=== PATIENT | male | born 1935 | race Caucasian/White ===

== ENCOUNTER 2018-04-06 12:25 | Inpatient (IN) | payer MEDICARE, OTHER ==
[~2018-04-06] VITALS: Ht 185.4 cm; Wt 89.4 kg
--- NOTE | ~2018-04-06 | MORECARE ---
CASE MANAGEMENT DISCHARGE SUMMARY PATIENT: JEAN-PIERRE RODRIGUEZ UNIT: [id number] ADM DATE: 04/07/18 AGE: 83 : 34 SEX: M ROOM/BED: D.2236 AUTHOR: SEJAL,DOC PHYSICIAN: REFERRING PHYSICIAN: CARMINA FARAH MD DATE OF SERVICE: 04/12/18 Discharge Plan Patient Name: JEAN-PIERRE RODRIGUEZ Facility: [facility]:[place] : 1935 Planned Disposition: Care Home Facility Anticipated Discharge Date: Discharge Date: 04/12/2018 Expected LOS: 0 Initial Reviewer: [email or web address] Initial Review Date: 04/06/2018 Generated: 04/12/18 4:04 pm Comments DCP- Discharge Planning Updated by [email or web address]: Paula Jb on 04/12/18 8:[address] Received discharge orders. Called [facility] and left a message with Joya. Discharge summary/orders faxed to [facility]. He will be discharging to a skilled (Medicare) bed today, when accepted. [facility] will transport. CM to continue to follow and assist with discharge planning/needs. DCP- Discharge Planning Updated by [email or web address]: aPula Muhammad on 04/11/18 1:[address] Spoke with patient, and his son about discharge plan. They are all in agreement to go to [facility] for skilled therapy and would like on "Akira's side". I called and spoke to Joya and informed her and clinical faxed. CM will continue to follow and assist with discharge planning/needs. DCP- Discharge Planning Updated by [email or web address]: Shu Block on 04/08/18 3:[address] SPOKE WITH PATIENT'S AND SON AT LENGTH ABOUT HOSPICE VS SKILLED. THEY QUESTIONED TEST THAT DR SILVA HAD TALKED ABOUT. I SPOKE WITH DR SILVA AND EXPRESSED THE FAMILIES CONCERNS AND QUESTIONS. DR SILVA STATED THAT HE WOULD ROUND TOMORROW AND ORDER THE TEST AND THEN WE WOULD REEVALUATE ON WEDNESDAY MORNING ABOUT THE NEXT STEP AND SEE WHAT THE FAMILY WILL WANT AND HOW THE PATIENT'S DOES. CM WILL CONTINUE TO FOLLOW AND ASSIST WITH DC PLANNING DCP- Discharge Planning Updated by [email or web address]: Kathy Hassan on 04/07/18 10:[address] Patient Name: JEAN-PIERRE RODRIGUEZ Admission Status: ER Accout number: [id number] Admission Date: 04-07-2018 : 1935 Admission Diagnosis: Attending: CARMINA FARAH Current LOS: 1 Anticipated DC Date: Planned Disposition: Primary Insurance: MEDICARE A & B Discharge Planning Comments: CM MET WITH PATIENT AND HIS ABOUT DC PLANNING/NEEDS. STATES PLAN IS TO GO TO IN PATIENT REHAB. WAITING ON SEVERAL DIFFERENT CONSULTS NOW. CM WILL FOLLOW AND ASSIST NEEDED WITH DC PLANNING/NEEDS. Jacquard Plate Maker: Kathy Hassan DCP- Discharge Planning Updated by [email or web address]: Pratima Munson on 04/06/18 2:[address] Call from Nellie Wray RN with [facility]. States there will not be a male bed available until tomorrow. Lacie Munson RN CM DCPIA - Discharge Planning Initial Assessment Updated by [email or web address]: Kathy Hassan on 04/07/18 11:06 am * Is the patient Alert and Oriented? Yes * How many steps to enter\\exit or inside your home? * PCP SOFI * Pharmacy [facility] * Preadmission Environment Home with Family * ADLs Partial Dependent * Partial ADLs (Assistance needed) Ambulation Bathing Dressing * Equipment Elevated Toliet Seat Glucometer Grab Bars Shower Chair Tub Bench Walker Wheelchair Wound Supplies * Other Equipment LIFT CHAIR RECLINER * List name and contact numbers for known caregivers / representatives who currently or will assist patient after discharge: ZE BURRIS, , * Community resources currently utilized None * Additional services required to return to the preadmission environment? Yes * Has this patient been hospitalized within the prior 30 days at any hospital? No Coverage Notice Reviewer: [email or web address] Cristina Muhammad Notice Issued Date-Time: 04/12/2018 10:02 Notice Type: IM Discharge Notice Notice Delivered To: Patient Relationship to Patient: Self Manager Compensation Name: Delivery Method: HAND - Hand Delivered Melanie Days: Prior Verbal Notification: Recipient Understood Notice: Yes Recipient Signature: Yes Med Rec Note Co-signed by Attending: Coverage Notice Comment: IMM explained, signed by his per his request, copy given and original placed in MR Last DP export: 04/12/18 8:45 Patient Name: JEAN-PIERRE RODRIGUEZ Page [id number] at 1505 All edits/amendments must be made on the electronic document DICTATION DATE: 04/12/181503 CONTRACT ADMIN: SIMEON 04/12/181503 RPT#: [id number] DC DATE:04/12/18 STATUS: DIS IN [facility] [address] [place] [address] END OF REPORT
--- NOTE | ~2018-04-06 | MORECARE ---
CASE MANAGEMENT DISCHARGE SUMMARY PATIENT: JEAN-PIERRE RODRIGUEZ UNIT: [id number] ADM DATE: 04/07/18 AGE: 83 : 34 SEX: M ROOM/BED: D.2236 AUTHOR: MELINDA POST PHYSICIAN: REFERRING PHYSICIAN: CARMINA FARAH MD DATE OF SERVICE: 04/11/18 Discharge Plan Patient Name: JEAN-PIERRE RODRIGUEZ Facility: [facility]:[place] : 1935 Planned Disposition: Anticipated Discharge Date: Discharge Date: Expected LOS: Initial Reviewer: [email or web address] Initial Review Date: 04/06/2018 Generated: 04/11/18 3:58 pm Comments DCP- Discharge Planning Updated by [email or web address]: Paula Muhammad on 04/11/18 1:[address] Spoke with patient, and his son about discharge plan. They are all in agreement to go to [facility] for skilled therapy and would like on "Akira's side". I called and spoke to Joya and informed her and clinical faxed. CM will continue to follow and assist with discharge planning/needs. DCP- Discharge Planning Updated by [email or web address]: Shu Block on 04/08/18 3:[address] SPOKE WITH PATIENT'S AND SON AT LENGTH ABOUT HOSPICE VS SKILLED. THEY QUESTIONED TEST THAT DR SILVA HAD TALKED ABOUT. I SPOKE WITH DR SILVA AND EXPRESSED THE FAMILIES CONCERNS AND QUESTIONS. DR SILVA STATED THAT HE WOULD ROUND TOMORROW AND ORDER THE TEST AND THEN WE WOULD REEVALUATE ON WEDNESDAY MORNING ABOUT THE NEXT STEP AND SEE WHAT THE FAMILY WILL WANT AND HOW THE PATIENT'S DOES. CM WILL CONTINUE TO FOLLOW AND ASSIST WITH DC PLANNING DCP- Discharge Planning Updated by [email or web address]: Kathy Hassan on 04/07/18 10:[address] Patient Name: JEAN-PIERRE RODRIGUEZ Admission Status: ER Accout number: [id number] Admission Date: 04-07-2018 : 1935 Admission Diagnosis: Attending: CARMINA FARAH Current LOS: 1 Anticipated DC Date: Planned Disposition: Primary Insurance: MEDICARE A & B Discharge Planning Comments: CM MET WITH PATIENT AND HIS ABOUT DC PLANNING/NEEDS. STATES PLAN IS TO GO TO IN PATIENT REHAB. WAITING ON SEVERAL DIFFERENT CONSULTS NOW. CM WILL FOLLOW AND ASSIST NEEDED WITH DC PLANNING/NEEDS. Certified Wellness Program Manager: Kathy Sonya DCP- Discharge Planning Updated by [email or web address]: Pratima Munson on 04/06/18 2:[address] Call from Nellie Wray RN with [facility]. States there will not be a male bed available until tomorrow. Lacie Munson RN CM DCPIA - Discharge Planning Initial Assessment Updated by [email or web address]: Kathy Hassan on 04/07/18 11:06 am * Is the patient Alert and Oriented? Yes * How many steps to enter\\exit or inside your home? * PCP SOFI * Pharmacy [facility] * Preadmission Environment Home with Family * ADLs Partial Dependent * Partial ADLs (Assistance needed) Ambulation Bathing Dressing * Equipment Elevated Tol[place] Seat Glucometer Grab Bars Shower Chair Tub Bench Walker Wheelchair Wound Supplies * Other Equipment LIFT CHAIR RECLINER * List name and contact numbers for known caregivers / representatives who currently or will assist patient after discharge: FATUMA, , , * Community resources currently utilized None * Additional services required to return to the preadmission environment? Yes * Has this patient been hospitalized within the prior 30 days at any hospital? No Last DP export: 04/11/18 1:49 Patient Name: JEAN-PIERRE RODRIGUEZ Page [phone] at 1458 All edits/amendments must be made on the electronic document DICTATION DATE: 04/11/181456 SQUARE CUTTER: SIMEON 04/11/181456 RPT#: [id number] DC DATE: STATUS: ADM IN [facility] [address] [place] [address] END OF REPORT
--- NOTE | ~2018-04-06 | MORECARE ---
CASE MANAGEMENT DISCHARGE SUMMARY PATIENT: JEAN-PIERRE RODRIGUEZ UNIT: [id number] ADM DATE: 04/07/18 AGE: 83 : 34 SEX: M ROOM/BED: D.2236 AUTHOR: MELINDA POST PHYSICIAN: REFERRING PHYSICIAN: CARMINA FARAH MD DATE OF SERVICE: 04/07/18 Discharge Plan Patient Name: JEAN-PIERRE RODRIGUEZ [facility] [facility] 1935 Planned Disposition: Anticipated Discharge Date: Discharge Date: Expected LOS: Initial Reviewer: [email or web address] Initial Review Date: 04/06/2018 Generated: 04/07/18 11:56 am DCP- Discharge Planning Updated by [email or web address]: Pratima Munson on 04/06/18 2:[address] Call from Nellie Wray RN with [facility]. States there will not be a male bed available until tomorrow. Lacie Munson RN CM Last DP export: 04/06/18 2:57 Patient Name: JEAN-PIERRE RODRIGUEZ Page [phone] at 1056 All edits/amendments must be made on the electronic document DICTATION DATE: 04/07/18 1056 SLACKMAN: SIMEON 04/07/18 1056 RPT#: [id number] DC DATE: STATUS: ADM IN [facility] [address] [place] [address] END OF REPORT
--- NOTE | ~2018-04-06 | MORECARE ---
CASE MANAGEMENT DISCHARGE SUMMARY PATIENT: JEAN-PIERRE RODRIGUEZ UNIT: [id number] ADM DATE: 04/07/18 AGE: 83 : 34 SEX: M ROOM/BED: D.2236 AUTHOR: MELINDA POST PHYSICIAN: REFERRING PHYSICIAN: CARMINA FARAH MD DATE OF SERVICE: 04/07/18 Discharge Plan Patient Name: JEAN-PIERRE RODRIGUEZ Facility: [facility]:[place] : 1935 Planned Disposition: Anticipated Discharge Date: Discharge Date: Expected LOS: Initial Reviewer: [email or web address] Initial Review Date: 04/06/2018 Generated: 04/07/18 12:10 pm DCP- Discharge Planning Updated by [email or web address]: Pratima Munson on 04/06/18 2:[address] Call from Nellie Wray RN with [facility]. States there will not be a male bed available until tomorrow. Lacie Munson RN DCPIA - Discharge Planning Initial Assessment Updated by [email or web address]: Kathy Hassan on 04/07/18 11:06 am * Is the patient Alert and Oriented? Yes * How many steps to enter\exit or inside your home? * PCP SOFI * Pharmacy [facility] * Preadmission Environment Home with Family * ADLs Partial Dependent * Partial ADLs (Assistance needed) Ambulation Bathing Dressing * Equipment Elevated Tol[place] Seat Glucometer Grab Bars Shower Chair Tub Bench Walker Wheelchair Wound Supplies * Other Equipment LIFT CHAIR RECLINER * List name and contact numbers for known caregivers / representatives who currently or will assist patient after discharge: ZE BURRIS, , * Community resources currently utilized None * Additional services required to return to the preadmission environment? Yes * Has this patient been hospitalized within the prior 30 days at any hospital? No Last DP export: 04/07/18 9:56 Patient Name: JEAN-PIERRE RODRIGUEZ Page [phone] at 1110 All edits/amendments must be made on the electronic document DICTATION DATE: 04/07/18 1110 WATER QUALITY ANALYST: SIMEON 04/07/18 1110 RPT#: [id number] DC DATE: STATUS: ADM IN [facility] [address] [place] [address] END OF REPORT
--- NOTE | ~2018-04-06 | MORECARE ---
CASE MANAGEMENT DISCHARGE SUMMARY PATIENT: JEAN-PIERRE RODRIGUEZ UNIT: [id number] ADM DATE: 04/07/18 AGE: 83 : 34 SEX: M ROOM/BED: D.2236 AUTHOR: MELINDA POST PHYSICIAN: REFERRING PHYSICIAN: CARMINA FARAH MD DATE OF SERVICE: 04/08/18 Discharge Plan Patient Name: JEAN-PIERRE RODRIGUEZ Facility: [facility]:[place] : 1935 Planned Disposition: Anticipated Discharge Date: Discharge Date: Expected LOS: Initial Reviewer: [id number] Initial Review Date: 04/06/2018 Generated: 04/08/18 5:08 pm Comments DCP- Discharge Planning Updated by [email or web address]: Shu Block on 04/08/18 3:[address] SPOKE WITH PATIENT'S AND SON AT LENGTH ABOUT HOSPICE VS SKILLED. THEY QUESTIONED TEST THAT DR SILVA HAD TALKED ABOUT. I SPOKE WITH DR SILVA AND EXPRESSED THE FAMILIES CONCERNS AND QUESTIONS. DR SILVA STATED THAT HE WOULD ROUND TOMORROW AND ORDER THE TEST AND THEN WE WOULD REEVALUATE ON WEDNESDAY MORNING ABOUT THE NEXT STEP AND SEE WHAT THE FAMILY WILL WANT AND HOW THE PATIENT'S DOES. CM WILL CONTINUE TO FOLLOW AND ASSIST WITH DC PLANNING DCP- Discharge Planning Updated by [email or web address]: Kathy Hassan on 04/07/18 10:[address] Patient Name: JEAN-PIERRE RODRIGUEZ Admission Status: ER Accout number: [id number] Admission Date: 04-07-2018 : 1935 Admission Diagnosis: Attending: CARMINA FARAH Current LOS: 1 Anticipated DC Date: Planned Disposition: Primary Insurance: MEDICARE A & B Discharge Planning Comments: CM MET WITH PATIENT AND HIS ABOUT DC PLANNING/NEEDS. STATES PLAN IS TO GO TO IN PATIENT REHAB. WAITING ON SEVERAL DIFFERENT CONSULTS NOW. CM WILL FOLLOW AND ASSIST NEEDED WITH DC PLANNING/NEEDS. Cloth Trimmer Hand: Kathy Hassan DCP- Discharge Planning Updated by [email or web address]: Pratima Munson on 04/06/18 2:[address] Call from Nellie Wray RN with [facility]. States there will not be a male bed available until tomorrow. Lacie Munson RN CM DCPIA - Discharge Planning Initial Assessment Updated by [email or web address]: Kathy Hassan on 04/07/18 11:06 am * Is the patient Alert and Oriented? Yes * How many steps to enter\exit or inside your home? * PCP SOFI * Pharmacy [facility] * Preadmission Environment Home with Family * ADLs Partial Dependent * Partial ADLs (Assistance needed) Ambulation Bathing Dressing * Equipment Elevated Toliet Seat Glucometer Grab Bars Shower Chair Tub Bench Walker Wheelchair Wound Supplies * Other Equipment LIFT CHAIR RECLINER * List name and contact numbers for known caregivers / representatives who currently or will assist patient after discharge: FATUMA, , , * Community resources currently utilized None * Additional services required to return to the preadmission environment? Yes * Has this patient been hospitalized within the prior 30 days at any hospital? No Last DP export: 04/07/18 10:23 Patient Name: JEAN-PIERRE RODRIGUEZ Page [phone] at 1609 All edits/amendments must be made on the electronic document DICTATION DATE: 04/08/181607 CONCRETE FOREMAN: SIMEON 04/08/181607 RPT#: [id number] [place] DATE: STATUS: ADM IN [facility] [address] [place] [address] END OF REPORT
--- NOTE | ~2018-04-06 | MORECARE ---
CASE MANAGEMENT DISCHARGE SUMMARY PATIENT: JEAN-PIERRE RODRIGUEZ UNIT: [id number] ADM DATE: 04/06/18 AGE: 83 : 34 SEX: M ROOM/BED: D.2236 AUTHOR: MELINDA POST PHYSICIAN: REFERRING PHYSICIAN: CARMINA FARAH MD DATE OF SERVICE: 04/06/18 Discharge Plan Patient Name: JEAN-PIERRE RODRIGUEZ [facility] : 1935 Planned Disposition: Anticipated Discharge Date: Discharge Date: Expected LOS: Initial Reviewer: [id number] Initial Review Date: 04/06/2018 Generated: 04/06/18 4:57 pm DCP- Discharge Planning Updated by [email or web address]: Pratima Munson on 04/06/18 2:[address] Call from Nellie Wray RN with [facility]. States there will not be a male bed available until tomorrow. Lacie Munson RN CM Patient Name: JEAN-PIERRE RODRIGUEZ Page [phone] at 1557 All edits/amendments must be made on the electronic document DICTATION DATE: 04/06/181556 SENIOR SCIENCE CONSULTANT: SIMEON 04/06/181556 RPT#: [id number] DC DATE: STATUS: ADM IN [facility] [address] [place] [address] END OF REPORT
--- NOTE | ~2018-04-06 | MORECARE ---
CASE MANAGEMENT DISCHARGE SUMMARY PATIENT: JEAN-PIERRE RODRIGUEZ UNIT: [id number] ADM DATE: 04/07/18 AGE: 83 : 34 SEX: M ROOM/BED: D.2236 AUTHOR: MELINDA POST PHYSICIAN: REFERRING PHYSICIAN: CARMINA FARAH MD DATE OF SERVICE: 04/07/18 Discharge Plan Patient Name: JEAN-PIERRE RODRIGUEZ Facility: [facility]:[place] : 1935 Planned Disposition: Anticipated Discharge Date: Discharge Date: Expected LOS: Initial Reviewer: [email or web address] Initial Review Date: 04/06/2018 Generated: 04/07/18 12:23 pm Comments DCP- Discharge Planning Updated by [email or web address]: Kathy Hassan on 04/07/18 10:[address] Patient Name: JEAN-PIERRE RODRIGUEZ Admission Status: ER Accout number: [id number] Admission Date: 04-07-2018 : 1935 Admission Diagnosis: Attending: CARMINA FARAH Current LOS: 1 Anticipated DC Date: Planned Disposition: Primary Insurance: MEDICARE A & B Discharge Planning Comments: CM MET WITH PATIENT AND HIS ABOUT DC PLANNING/NEEDS. STATES PLAN IS TO GO TO [facility] PATIENT REHAB. WAITING ON SEVERAL DIFFERENT CONSULTS NOW. CM WILL FOLLOW AND ASSIST NEEDED WITH DC PLANNING/NEEDS. Handcrew Foreman: Kathy Hassan DCP- Discharge Planning Updated by [email or web address]: Pratima Munson on 04/06/18 2:[address] Call from Nellie Wray RN with [facility]. States there will not be a male bed available until tomorrow. Lacie Munson RN CM DCPIA - Discharge Planning Initial Assessment Updated by [email or web address]: Kathy Hassan on 04/07/18 11:06 am * Is the patient Alert and Oriented? Yes * How many steps to enter\exit or inside your home? * PCP SOFI * Pharmacy [facility] * Preadmission Environment Home with Family * ADLs Partial Dependent * Partial ADLs (Assistance needed) Ambulation Bathing Dressing * Equipment Elevated Toliet Seat Glucometer Grab Bars Shower Chair Tub Bench Walker Wheelchair Wound Supplies * Other Equipment LIFT CHAIR RECLINER * List name and contact numbers for known caregivers / representatives who currently or will assist patient after discharge: FATUMA, , , * Community resources currently utilized None * Additional services required to return to the preadmission environment? Yes * Has this patient been hospitalized within the prior 30 days at any hospital? No Last DP export: 04/07/18 10:10 Patient Name: JEAN-PIERRE RODRIGUEZ Page 09845 at 1123 All edits/amendments must be made on the electronic document DICTATION DATE: 04/07/18 112 KNIFE SETTER GRINDER MACHINE: SIMEON 04/07/181122 RPT#: [id number] DC DATE: STATUS: ADM IN [facility] [address] [place] [address] END OF REPORT
--- NOTE | ~2018-04-06 | MORECARE ---
CASE MANAGEMENT DISCHARGE SUMMARY PATIENT: JEAN-PIERRE RODRIGUEZ UNIT: [id number] ADM DATE: 04/07/18 AGE: 83 : 34 SEX: M ROOM/BED: D.2236 AUTHOR: MELINDA POST PHYSICIAN: REFERRING PHYSICIAN: CARMINA FARAH MD DATE OF SERVICE: 04/11/18 Discharge Plan Patient Name: JEAN-PIERRE RODRIGUEZ Facility: [facility]:[place] : 1935 Planned Disposition: Anticipated Discharge Date: Discharge Date: Expected LOS: Initial Reviewer: [email or web address] Initial Review Date: 04/06/2018 Generated: 04/11/18 3:49 pm Comments DCP- Discharge Planning Updated by [email or web address]: Paula Muhammad on 04/11/18 1:[address] Spoke with patient, and his son about discharge plan. They are all in agreement to go to [facility] for skilled therapy and would like on "Akira's side". I called and spoke to Joya and informed her and clinical faxed. CM will continue to follow and assist with discharge planning/needs. DCP- Discharge Planning Updated by [email or web address]: Shu Block on 04/08/18 3:[address] SPOKE WITH PATIENT'S AND SON AT LENGTH ABOUT HOSPICE VS SKILLED. THEY QUESTIONED TEST THAT DR SILVA HAD TALKED ABOUT. I SPOKE WITH DR SILVA AND EXPRESSED THE FAMILIES CONCERNS AND QUESTIONS. DR SILVA STATED THAT HE WOULD ROUND TOMORROW AND ORDER THE TEST AND THEN WE WOULD REEVALUATE ON WEDNESDAY MORNING ABOUT THE NEXT STEP AND SEE WHAT THE FAMILY WILL WANT AND HOW THE PATIENT'S DOES. CM WILL CONTINUE TO FOLLOW AND ASSIST WITH DC PLANNING DCP- Discharge Planning Updated by [id number]: Kathy Hassan on 04/07/18 10:[address] Patient Name: JEAN-PIERRE RODRIGUEZ Admission Status: ER Accout number: [id number] Admission Date: 04-07-2018 : 1935 Admission Diagnosis: Attending: CARMINA FARAH Current LOS: 1 Anticipated DC Date: Planned Disposition: Primary Insurance: MEDICARE A & B Discharge Planning Comments: CM MET WITH PATIENT AND HIS ABOUT DC PLANNING/NEEDS. STATES PLAN IS TO GO TO IN PATIENT REHAB. WAITING ON SEVERAL DIFFERENT CONSULTS NOW. CM WILL FOLLOW AND ASSIST NEEDED WITH DC PLANNING/NEEDS. Outreach Associate: Kathy Hassan DCP- Discharge Planning Updated by [email or web address]: Pratima Munson on 04/06/18 2:[address] Call from Nellie Wray RN with [facility]. States there will not be a male bed available until tomorrow. Lacie Munson RN CM DCPIA - Discharge Planning Initial Assessment Updated by [email or web address]: Kathykristie Hassan on 04/07/18 11:06 am * Is the patient Alert and Oriented? Yes * How many steps to enter\\exit or inside your home? * PCP SOFI * Pharmacy [facility] * Preadmission Environment Home with Family * ADLs Partial Dependent * Partial ADLs (Assistance needed) Ambulation Bathing Dressing * Equipment Elevated Toliet Seat Glucometer Grab Bars Shower Chair Tub Bench Walker Wheelchair Wound Supplies * Other Equipment LIFT CHAIR RECLINER * List name and contact numbers for known caregivers / representatives who currently or will assist patient after discharge: ZE BURRIS, , * Community resources currently utilized None * Additional services required to return to the preadmission environment? Yes * Has this patient been hospitalized within the prior 30 days at any hospital? No External Providers External Provider: [facility] Next Contact Date: Service Request Date: Service Type: Resolution: Reviewer: Comments: Last DP export: 04/08/18 3:09 Patient Name: JEAN-PIERRE RODRIGUEZ Page [phone] at 1449 All edits/amendments must be made on the electronic document DICTATION DATE: 04/11/18 144 EDGING MACHINE OPERATOR: SIMEON 04/11/18 144 RPT#: [id number] DC DATE: STATUS: ADM IN [facility] [address] [place] [address] END OF REPORT
--- NOTE | ~2018-04-06 | MORECARE ---
CASE MANAGEMENT DISCHARGE SUMMARY PATIENT: JEAN-PIERRE RODRIGUEZ UNIT: [id number] ADM DATE: 04/07/18 AGE: 83 : 34 SEX: M ROOM/BED: D.2236 AUTHOR: MELINDA POST PHYSICIAN: REFERRING PHYSICIAN: CARMINA FARAH MD DATE OF SERVICE: 04/12/18 Discharge Plan Patient Name: JEAN-PIERRE RODRIGUEZ Facility: [facility]:[place] : 1935 Planned Disposition: Anticipated Discharge Date: Discharge Date: Expected LOS: Initial Reviewer: [email or web address] Initial Review Date: 04/06/2018 Generated: 04/12/18 10:45 am Comments DCP- Discharge Planning Updated by [email or web address]: Paula Muhammad on 04/12/18 8:[address] Received discharge orders. Called [facility] and left a message with Joya. Discharge summary/orders faxed to [facility]. He will be discharging to a skilled (Medicare) bed today, when accepted. [facility] will transport. CM to continue to follow and assist with discharge planning/needs. DCP- Discharge Planning Updated by [id number]: Paula Muhammad on 04/11/18 1:[address] Spoke with patient, and his son about discharge plan. They are all in agreement to go to [facility] for skilled therapy and would like on "Akira's side". I called and spoke to Joya and informed her and clinical faxed. CM will continue to follow and assist with discharge planning/needs. DCP- Discharge Planning Updated by [email or web address]: Shu Block on 04/08/18 3:[address] SPOKE WITH PATIENT'S AND SON AT LENGTH ABOUT HOSPICE VS SKILLED. THEY QUESTIONED TEST THAT DR SILVA HAD TALKED ABOUT. I SPOKE WITH DR SILVA AND EXPRESSED THE FAMILIES CONCERNS AND QUESTIONS. DR SILVA STATED THAT HE WOULD ROUND TOMORROW AND ORDER THE TEST AND THEN WE WOULD REEVALUATE ON WEDNESDAY MORNING ABOUT THE NEXT STEP AND SEE WHAT THE FAMILY WILL WANT AND HOW THE PATIENT'S DOES. CM WILL CONTINUE TO FOLLOW AND ASSIST WITH DC PLANNING DCP- Discharge Planning Updated by [id number]: Kathy Hassan on 04/07/18 10:[address] Patient Name: JEAN-PIERRE RODRIGUEZ Admission Status: ER Accout number: [id number] Admission Date: 04-07-2018 : 1935 Admission Diagnosis: Attending: CARMINA FARAH Current LOS: 1 Anticipated DC Date: Planned Disposition: Primary Insurance: MEDICARE A & B Discharge Planning Comments: CM MET WITH PATIENT AND HIS ABOUT DC PLANNING/NEEDS. STATES PLAN IS TO GO TO IN PATIENT REHAB. WAITING ON SEVERAL DIFFERENT CONSULTS NOW. CM WILL FOLLOW AND ASSIST NEEDED WITH DC PLANNING/NEEDS. Coding Technician: Kathy Hassan DCP- Discharge Planning Updated by [email or web address]: Pratima Munson on 04/06/18 2:[address] Call from Nellie Wray RN with [facility]. States there will not be a male bed available until tomorrow. Lacie Munson RN CM DCPIA - Discharge Planning Initial Assessment Updated by [email or web address]: Kathy Hassan on 04/07/18 11:06 am * Is the patient Alert and Oriented? Yes * How many steps to enter\\exit or inside your home? * PCP SOFI * Pharmacy [facility] * Preadmission Environment Home with Family * ADLs Partial Dependent * Partial ADLs (Assistance needed) Ambulation Bathing Dressing * Equipment Elevated Tol[place] Seat Glucometer Grab Bars Shower Chair Tub Bench Walker Wheelchair Wound Supplies * Other Equipment LIFT CHAIR RECLINER * List name and contact numbers for known caregivers / representatives who currently or will assist patient after discharge: ZE BURRIS, , * Community resources currently utilized None * Additional services required to return to the preadmission environment? Yes * Has this patient been hospitalized within the prior 30 days at any hospital? No Last DP export: 04/11/18 1:58 Patient Name: JEAN-PIERRE RODRIGUEZ Page [phone] at 0945 All edits/amendments must be made on the electronic document DICTATION DATE: 04/12/18944 ORDER ENTRY TECHNICIAN: SIMEON 04/12/18944 RPT#: [id number] DC DATE: STATUS: ADM IN [facility] [address] [id number] END OF REPORT
[~2018-04-06 12:25] MED LIST: ASPIRIN325 MG PO; BAYER CHEWABLE81 MG PO; CALCIUM 600+D T1 TA1 PO; CARAFATE1 G PO; COREG 3.1253.125 MG PO; COUMADIN2.5 MG PO; COUMADIN5 MG PO; COZAAR25 MG PO; COZAAR50 MG PO; GAS-X80 MG PO; GLUCOTROL 5 MG T5 MG; GLUCOTROL XL 5 M5 MG PO; KLOR-CON M2020 MEQ PO; LASIX20 MG PO; LOVENOX40 MG/0.4 SC; METAMUCIL PACKE1 PKT PO; MEVACOR40 MG PO; MICRO-K 1010 MEQ PO; MICRO-K10 MEQ PO; MYLANTA / MAALO30 ML PO; MYSOLINE 50 MG50 MG PO; NORVASC2.5 MG PO; NORVASC5 MG; PERCOCET 10/3251 TA1 PO; PLAVIX75 MG PO; PROTONIX40 MG PO; SENNA PLUS TA1 UDTAB PO; SUTENT50 MG PO; ZOLOFT50 MG PO
[2018-04-06 14:16] LABS: HEMATOCRIT 23.4 % (42.0-54.0); HEMOGLOBIN 7.7 g/dL (13.5-17.5); LYMPHOCYTES 9.8 % (15-50); MCH 35.5 pg (26.0-34.0); MCHC 32.9 g/dL (31.0-37.0); MCV 107.8 fL (80.0-100.0); MEAN PLATELET VOLUME 7.9 fL (7.4-10.4); NEUTROPHILS 79.7 % (40-80); RBC 2.17 10x6/uL (4.20-6.10); RDW 16.8 % (11.5-14.5); WBC 5.2 10x3/uL (4.8-10.8)
[2018-04-06 14:20] LABS: ALBUMIN 2.7 g/dL (3.4-5.0); ANION GAP 13.8 mmol/L (8-16); BILIRUBIN - TOTAL 0.34 mg/dL (0.2-1.3); CALCIUM 8.1 mg/dL (8.5-10.1); CARBON DIOXIDE 26.7 mmol/L (21.0-32.0); POTASSIUM - SERUM 3.5 mmol/L (3.5-5.1); PROTEIN - SERUM 6.7 g/dL (6.4-8.2)
[2018-04-06 14:21] LABS: APPEARANCE CLEAR (CLEAR); BILIRUBIN NEGATIVE (NEGATIVE); COLOR YELLOW (YELLOW); GLUCOSE NEGATIVE (NEGATIVE); KETONE NEGATIVE (NEGATIVE); NITRITE NEGATIVE (NEGATIVE); PROTEIN NEGATIVE (NEGATIVE); UROBILINOGEN NORMAL (NORMAL)
[2018-04-06 14:22] LABS: PLATELET COUNT 204 10x3/uL (130-400)
[2018-04-06 15:54] LABS: CREATINE KINASE 96 UL (21-232); TROPONIN-I 0.024 ng/mL (0.000-0.060)
[2018-04-06 16:19] LABS: CKMB 1.3 U/L (0.0-3.6)
[2018-04-06 16:48] VITALS: BP 135/56
[2018-04-06] MEDS ORDERED: VITAMIN B-121000 MCG PO (17:12)
[2018-04-06] MEDS ORDERED: ULTRAM50 MG PO (17:15)
[2018-04-06] MEDS ORDERED: RANITIDINE HCL150 M1 PO (17:16)
[2018-04-06] MEDS ORDERED: FOLIC ACID1 MG PO (17:17)
[2018-04-06] MEDS ORDERED: BACTRIM 400-801 TAB PO (17:19)
[2018-04-06] MEDS ORDERED: PLAVIX75 MG PO (17:20)
[2018-04-06] MEDS ORDERED: VITAMIN D31000 UNIT PO (17:21)
[2018-04-06] MEDS ORDERED: ASPIRIN EC81 M1 PO (17:22)
[2018-04-06 20:00] VITALS: BP 118/52
[2018-04-06 22:42] LABS: CREATINE KINASE 90 UL (21-232); TROPONIN-I 0.032 ng/mL (0.000-0.060)
[2018-04-07 01:20] VITALS: BP 120/50
[2018-04-07 02:55] LABS: BASOPHILS 0.2 % (0-2); EOSINOPHILS 2.4 % (0-7); HEMATOCRIT 22.3 % (42.0-54.0); IMMATURE GRANULOCYTES 0.2 % (0-5); LYMPHOCYTES 15.8 % (15-50); MCH 34.3 pg (26.0-34.0); MCHC 31.4 g/dL (31.0-37.0); MCV 109.3 fL (80.0-100.0); MEAN PLATELET VOLUME 8.7 fL (7.4-10.4); MONOCYTES 9.2 % (2-11); NEUTROPHILS 72.2 % (40-80); RBC 2.04 10x6/uL (4.20-6.10); RDW 17.6 % (11.5-14.5); WBC 4.6 10x3/uL (4.8-10.8)
[2018-04-07 03:05] LABS: PLATELET COUNT 159 10x3/uL (130-400)
[2018-04-07 03:26] LABS: ALBUMIN 2.3 g/dL (3.4-5.0); ALKALINE PHOSPHATASE 55 U/L (46-116); ALT (SGPT) 14 U/L (10-68); BILIRUBIN - TOTAL 0.34 mg/dL (0.2-1.3); CALC OSMOLALITY 277 mosm/kg (275-300); CALCIUM 7.5 mg/dL (8.5-10.1); CARBON DIOXIDE 28.7 mmol/L (21.0-32.0); CHLORIDE - SERUM 100 mmol/L (98-107); CKMB 1.1 U/L (0.0-3.6); CREATINE KINASE 83 UL (21-232); CREATININE - SERUM 1.9 mg/dL (0.6-1.3); POTASSIUM - SERUM 3.7 mmol/L (3.5-5.1); PROTEIN - SERUM 6.2 g/dL (6.4-8.2); SODIUM 134 mmol/L (136-145); TROPONIN-I 0.022 ng/mL (0.000-0.060); UREA NITROGEN 43 mg/dL (7-18); eGFR NON AFRICAN AMERICAN 36 mL/min (90-120)
[2018-04-07 03:27] LABS: GLUCOSE 86 mg/dL (74-106)
[2018-04-07 04:42] VITALS: BP 118/48
[2018-04-07 08:52] VITALS: BP 113/52
[2018-04-07 12:26] VITALS: BMI 25.9
[2018-04-07 13:28] VITALS: BP 120/50
[2018-04-07 17:53] VITALS: BP 120/62
[2018-04-07 21:24] VITALS: BP 102/44
[2018-04-07 21:53] VITALS: Ht 185.4 cm; Wt 89.4 kg
[2018-04-08] VITALS (9 sets, daily range): BP systolic 108–149; BP diastolic 48–69
[2018-04-08 06:00] LABS: BASOPHILS 0.2 % (0-2); HEMATOCRIT 23.8 % (42.0-54.0); HEMOGLOBIN 7.7 g/dL (13.5-17.5); IMMATURE GRANULOCYTES 0.4 % (0-5); LYMPHOCYTES 10.7 % (15-50); MCH 34.4 pg (26.0-34.0); MCHC 32.4 g/dL (31.0-37.0); MEAN PLATELET VOLUME 8.9 fL (7.4-10.4); MONOCYTES 11.3 % (2-11); NEUTROPHILS 76.4 % (40-80); RBC 2.24 10x6/uL (4.20-6.10); RDW 19.4 % (11.5-14.5); WBC 4.9 10x3/uL (4.8-10.8)
[2018-04-08 06:01] LABS: MCV 106.3 fL (80.0-100.0); PLATELET COUNT 197 10x3/uL (130-400)
[2018-04-08 06:14] LABS: % SATURATION 19 % (15-55); IRON 43 ug/dl (35-150); TOTAL IRON BIND CAPACITY 225 ug/dl (260-445); UNSAT IRON BIND CAPACITY 182 ug/dl (150-375)
[2018-04-08 06:28] LABS: ANION GAP 16.5 mmol/L (8-16); CARBON DIOXIDE 23.2 mmol/L (21.0-32.0); CREATININE - SERUM 1.9 mg/dL (0.6-1.3); POTASSIUM - SERUM 3.7 mmol/L (3.5-5.1)
[2018-04-09 06:31] LABS: BASOPHILS 0.4 % (0-2); EOSINOPHILS 1.9 % (0-7); HEMATOCRIT 29.3 % (42.0-54.0); HEMOGLOBIN 9.5 g/dL (13.5-17.5); IMMATURE GRANULOCYTES 0.4 % (0-5); LYMPHOCYTES 18.8 % (15-50); MCH 33.9 pg (26.0-34.0); MCHC 32.4 g/dL (31.0-37.0); MCV 104.6 fL (80.0-100.0); MEAN PLATELET VOLUME 8.6 fL (7.4-10.4); MONOCYTES 14.2 % (2-11); NEUTROPHILS 64.3 % (40-80); PLATELET COUNT 171 10x3/uL (130-400); RDW 21.9 % (11.5-14.5); WBC 4.6 10x3/uL (4.8-10.8)
[2018-04-09 06:48] LABS: ANION GAP 12.2 mmol/L (8-16); CALCIUM 7.3 mg/dL (8.5-10.1); CARBON DIOXIDE 22.8 mmol/L (21.0-32.0); CREATININE - SERUM 1.6 mg/dL (0.6-1.3)
[2018-04-09 09:40] VITALS: BP 142/70
[2018-04-09 11:10] LABS: FOLATE (FOLIC ACID) - SERUM 17.6 ng/mL (>3.0)
[2018-04-09 16:36] VITALS: BP 102/45
[2018-04-09 20:05] VITALS: BP 101/52
[2018-04-10 05:25] VITALS: BP 140/50
[2018-04-10 05:56] LABS: BASOPHILS 0.2 % (0-2); EOSINOPHILS 2.7 % (0-7); HEMATOCRIT 29.6 % (42.0-54.0); HEMOGLOBIN 9.4 g/dL (13.5-17.5); IMMATURE GRANULOCYTES 0.6 % (0-5); LYMPHOCYTES 17.8 % (15-50); MCH 33.1 pg (26.0-34.0); MCHC 31.8 g/dL (31.0-37.0); MCV 104.2 fL (80.0-100.0); MONOCYTES 10.5 % (2-11); NEUTROPHILS 68.2 % (40-80); RBC 2.84 10x6/uL (4.20-6.10); WBC 5.1 10x3/uL (4.8-10.8)
[2018-04-10 05:59] LABS: PLATELET COUNT 210 10x3/uL (130-400)
[2018-04-10 06:33] LABS: ANION GAP 13.9 mmol/L (8-16); CALCIUM 7.6 mg/dL (8.5-10.1); CREATININE - SERUM 1.5 mg/dL (0.6-1.3)
[2018-04-10 06:34] LABS: POTASSIUM - SERUM 2.9 mmol/L (3.5-5.1)
[2018-04-10 08:24] VITALS: BP 136/46
[2018-04-10 14:21] VITALS: BP 104/44
[2018-04-10 19:42] VITALS: BP 124/45
[2018-04-11 05:02] VITALS: BP 130/42
[2018-04-11 07:59] VITALS: BP 149/51
[2018-04-11 12:11] VITALS: BP 158/63
[2018-04-11 14:29] LABS: MAGNESIUM - SERUM 2.3 mg/dL (1.8-2.4); PHOSPHOROUS 2.2 mg/dL (2.5-4.9)
[2018-04-11 17:01] VITALS: BP 131/49
[2018-04-11 20:43] VITALS: BP 132/60
[2018-04-12 04:02] VITALS: BP 118/49
[2018-04-12 05:19] LABS: BASOPHILS 0.2 % (0-2); EOSINOPHILS 1.3 % (0-7); HEMATOCRIT 26.1 % (42.0-54.0); HEMOGLOBIN 8.2 g/dL (13.5-17.5); IMMATURE GRANULOCYTES 0.5 % (0-5); LYMPHOCYTES 12.8 % (15-50); MCH 32.8 pg (26.0-34.0); MCHC 31.4 g/dL (31.0-37.0); MCV 104.4 fL (80.0-100.0); MEAN PLATELET VOLUME 8.6 fL (7.4-10.4); MONOCYTES 10.6 % (2-11); NEUTROPHILS 74.6 % (40-80); PLATELET COUNT 180 10x3/uL (130-400); RDW 20.1 % (11.5-14.5)
[2018-04-12 05:42] LABS: CALCIUM 7.7 mg/dL (8.5-10.1); CARBON DIOXIDE 19.5 mmol/L (21.0-32.0); CREATININE - SERUM 1.4 mg/dL (0.6-1.3); POTASSIUM - SERUM 3.5 mmol/L (3.5-5.1)
[2018-04-12 08:18] VITALS: BP 129/62
[2018-04-12 12:16] VITALS: BP 134/54
== END 2018-04-12 14:31 | DRG 683 ==
LOC: D.ER 12:25 → D.MS 14:58 → D.EDHOLD 14:58 → OBSVTIME 14:59 → D.MS 15:02 → D.SDCHOLD 04-11 15:32 → D.MS 04-11 15:35
PROVIDERS: Family Medicine; Legal Medicine
DX: N17.9 Acute kidney failure, unspecified (principal); C64.9 Malignant neoplasm of unspecified kidney, except renal pelvis; C79.51 Secondary malignant neoplasm of bone; R44.3 Hallucinations, unspecified; D63.1 Anemia in chronic kidney disease; E11.22 Type 2 diabetes mellitus with diabetic chronic kidney disease; I12.9 Hypertensive chronic kidney disease with stage 1 through stage 4 chronic kidney disease, or unspecified chronic kidney disease; N18.9 Chronic kidney disease, unspecified; Z87.891 Personal history of nicotine dependence; E11.40 Type 2 diabetes mellitus with diabetic neuropathy, unspecified; S81.802D Unspecified open wound, left lower leg, subsequent encounter; Z95.1 Presence of aortocoronary bypass graft; G72.9 Myopathy, unspecified; W19.XXXA Unspecified fall, initial encounter; Z90.5 Acquired absence of kidney; R53.1 Weakness; R41.0 Disorientation, unspecified; G93.89 Other specified disorders of brain; E87.6 Hypokalemia; E83.51 Hypocalcemia

== ENCOUNTER 2018-10-19 01:14 | Inpatient (IN) | payer MEDICARE, OTHER ==
[2018-10-19] VITALS (18 sets, daily range): BP systolic 131–165; BP diastolic 56–79; Ht 185.4 cm; Wt 100.1 kg
[~2018-10-19] VITALS: Ht 185.4 cm; Wt 100.1 kg
[~2018-10-19 01:14] MED LIST changes: +ASPIRIN EC81 M1 PO; +BACTRIM 400-801 TAB PO; +FOLIC ACID1 MG PO; +RANITIDINE HCL150 M1 PO; +ULTRAM50 MG PO; +VITAMIN B-121000 MCG PO; +VITAMIN D31000 UNIT PO
[2018-10-19 02:41] LABS: BASOPHILS 0.3 % (0-2); EOSINOPHILS 2.6 % (0-7); HEMATOCRIT 23.6 % (42.0-54.0); IMMATURE GRANULOCYTES 0.1 % (0-5); LYMPHOCYTES 13.4 % (15-50); MCH 21.7 pg (26.0-34.0); MCHC 28.8 g/dL (31.0-37.0); MCV 75.2 fL (80.0-100.0); MEAN PLATELET VOLUME 8.3 fL (7.4-10.4); NEUTROPHILS 76.6 % (40-80); RBC 3.14 10x6/uL (4.20-6.10); RDW 17.3 % (11.5-14.5); WBC 7.7 10x3/uL (4.8-10.8)
[2018-10-19 02:43] LABS: INR 1.37 (0.85-1.17); PROTIME 16.3 SECONDS (11.6-15.0)
[2018-10-19 02:44] LABS: APTT 38.8 SECONDS (22.8-39.4)
[2018-10-19 02:48] LABS: ALBUMIN 2.6 g/dL (3.4-5.0); ALKALINE PHOSPHATASE 81 U/L (46-116); ALT (SGPT) 14 U/L (10-68); BILIRUBIN - TOTAL 0.24 mg/dL (0.2-1.3); CALC OSMOLALITY 285 mosm/kg (275-300); CALCIUM 8.5 mg/dL (8.5-10.1); CHLORIDE - SERUM 101 mmol/L (98-107); CREATININE - SERUM 1.4 mg/dL (0.6-1.3); GLUCOSE 142 mg/dL (74-106); HEMOGLOBIN 6.8 g/dL (13.5-17.5); PLATELET COUNT 259 10x3/uL (130-400); POTASSIUM - SERUM 3.8 mmol/L (3.5-5.1); PROTEIN - SERUM 7.1 g/dL (6.4-8.2); SODIUM 137 mmol/L (136-145); UREA NITROGEN 41 mg/dL (7-18); eGFR NON AFRICAN AMERICAN 51 mL/min (90-120)
--- NOTE | 2018-10-19 02:48 | NUR ---
CRITICAL LAB VALUE PER JUAN MANUEL. HGB 6.8. EDP AND NURSE NOTIFIED.
[2018-10-19 02:59] LABS: CKMB 0.5 U/L (0.0-3.6); CREATINE KINASE 42 UL (21-232); PRO BNP 2604 pg/mL (0-450)
[2018-10-19 03:05] LABS: TROPONIN-I < 0.017 ng/mL (0.000-0.060)
--- NOTE | 2018-10-19 03:29 | NUR ---
IV SITED TO LEFT FOREARM 20G X 1 ATTEMPT. PT TOLERATED WELL. URINE SAMPLE SENT TO LAB.
[2018-10-19 03:36] LABS: APPEARANCE CLEAR (CLEAR); BILIRUBIN NEGATIVE (NEGATIVE); COLOR STRAW (YELLOW); GLUCOSE NEGATIVE (NEGATIVE); KETONE NEGATIVE (NEGATIVE); NITRITE NEGATIVE (NEGATIVE); PH 5.5 (5.0-6.0); PROTEIN NEGATIVE (NEGATIVE); UROBILINOGEN NORMAL (NORMAL)
--- NOTE | 2018-10-19 04:09 | NUR ---
BLOOD CHECKED WITH Álvaro DOW RN, AND STARTED AT 0355, TOLERATING WELL, RESP. REGULAR, NO DISTRESS.
--- NOTE | 2018-10-19 06:15 | NUR ---
AWAKE AND ALERT, AT BEDSIDE, VS STABLE. NO DISTRESS. BLOOD INFUSING VIA PUMP.
--- NOTE | 2018-10-19 06:48 | NUR ---
NO CHANGES NOTED, RESP. REGULAR. AT BEDSIDE. BLOOD INFUSING VIA PUMP.
--- NOTE | 2018-10-19 06:55 | NUR ---
REPORT GIVEN TO TRICE HERNANDEZ.
--- NOTE | 2018-10-19 07:23 | NUR ---
REPORT CALLED TO DAVID TAVERAS BY [facility]
--- NOTE | 2018-10-19 07:28 | NUR ---
FSBS= 124 MG/DL
--- NOTE | 2018-10-19 07:30 | NUR ---
BLOOD TRANSFUSION COMPLETE. VSS
--- NOTE | 2018-10-19 07:45 | NUR ---
PT ADMITTED TO ROOM #2140. CONDITION STABLE. IV/SL LFA INTACT. NO S/SX OF INFILTRATION NOTED AT SITE
[2018-10-19 09:05] LABS: % SATURATION 7 % (15-55); IRON 18 ug/dl (35-150); TOTAL IRON BIND CAPACITY 236 ug/dl (260-445); UNSAT IRON BIND CAPACITY 218 ug/dl (150-375)
[2018-10-19] MEDS ORDERED: GLUCOTROL ER2.5 MG PO (09:08)
[2018-10-19] MEDS ORDERED: LASIX80 MG PO (09:09)
[2018-10-19] MEDS ORDERED: POTASSIUM CHLO10 ME1 PO (09:10)
[2018-10-19] MEDS ORDERED: ZOLOFT100 MG PO (09:12)
--- NOTE | 2018-10-19 10:19 | NUR ---
PT NEW ADMIT FROM ER WITH ANEMIA. PT REC'D 1 UNIT OF PRBCS IN ER. NOW JUST INITIATED ANOTHER UNIT PER PRIMARY. INFUSING VIA L.AC PIV. VSS AND BEING MONITERED PER POLICY. ADMISSION WORKUP COMPLETED. UPON ASSESSING PT HE HAD MULTIPLE DRSGS TO HIS LEFT LEG THAT WERE SOILED. UPON UNDRESSING THEM NOTED VERY FOUL ODOR AND DRSG HAVE GREENISH YELLOW DRAINAGE. CONSULTED WOUND CARE AND WILL TREAT PER HER RECCOMENDATIONS. 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 PT VOICED THANKS. PT DENIES ANY CURRENT PAIN OR NEEDS AT THIS TIME. CL IN REACH, BED IN LOWEST, SIDE RAILS X2 AND BUILT IN BED ALARM ON. WILL CTM.
--- NOTE | 2018-10-19 12:22 | NUR ---
PT BLOOD TRANSFUSION COMPLETED. PT HAS HAD A TOTAL OF 2 UNITS NOW. NO REACTION NOTED ON EITHER UNITS. PT SITTING UP IN BED RESTING QUIETLY AND JUST FINISHED EATING LUNCH. PT MISSED HIS 1130 CARAFATE ITS TO BE GIVEN PRIOR TO EATING AND HE ALREADY ATE HIS ENTIRE LUNCH, WILL START NEXT DOSE. FAMILY HAS STEPPED OUT FOR A BIT. PT DENIES ANY CURRENT PAIN OR NEEDS AT THIS TIME. WILL CTM.
--- NOTE | 2018-10-19 14:42 | NUR ---
COMPLETE BED BATH GIVEN TO PT AND HE VOICED THANKS. PT SITTING UP IN BED RESTING QUIETLY DENIES ANY CURRENT PAIN OR NEEDS AT THIS TIME. CL IN REACH. WILL CTM.
--- NOTE | 2018-10-19 14:45 | NUR ---
Pt has open wound on left lateral knee meauring 0.5cm x 0.5cm x 0.5cm. Wound is hypergranulated but continues to have depth. Clear drainage is noted. Left calf has a chronic wound measuring 13cm x 4cm. Healed skin is noted. Wound bed is red with peeling scaly skin surrounding. Left medellin has chronic wound measuring 3cm x 2cm. Red wound bed with peeling scaly skin surrounding. Right #2 toe has a scab (mostly dried blood). After cleaning area it appears that there is only half a toenail. No drainage. Recommendations: -mepilex foam over wound on lateral knee then secured with bordered gauze -Adaptic over medellin and calf wounds, covered by dry 4x4s and secured with kerlix -Turn/reposition pt every 2 hours -Bridge heels -Protect bony prominences Wound care will continue monitoring.
--- NOTE | 2018-10-19 18:30 | NUR ---
EMPTIED PTS URINAL OF 350ML CLEAR YELLOW URINE. PT FINISHED EATING DINNER AND IS RESTING QUIETLY IN BED. PT STATES HE IS FEELING PRETTY GOOD OVERALL. DENIES ANY CURRENT PAIN OR NEEDS. WILL PASS ON IN SHIFT REPORT.
--- NOTE | 2018-10-19 19:10 | NUR ---
PT SITTING UP IN BED ALERT AND ORIENTED. PT DENIES ANY PAIN OR NEEDS AT THIS TIME. BED LOW, SIDE RAILS UP X2, CALL LIGHT WITHIN REACH. WILL CONTINUE TO MONITOR.
[2018-10-20] VITALS: BP 169/70
[2018-10-20 04:00] VITALS: BP 153/72
--- NOTE | 2018-10-20 04:19 | NUR ---
PT ALERT AND ORIENTED SITTING UP IN BED. RR EVEN AND UNLABORED. NO S/S OF DISTRESS. SIDE RAILS UP X2, BED LOW, CALL LIGHT WITHIN REACH. WILL CONTINUE TO MONITOR.
[2018-10-20 06:00] LABS: BASOPHILS 0.4 % (0-2); EOSINOPHILS 3.4 % (0-7); IMMATURE GRANULOCYTES 0.1 % (0-5); LYMPHOCYTES 13.7 % (15-50); MCH 23.4 pg (26.0-34.0); MCHC 30.3 g/dL (31.0-37.0); MEAN PLATELET VOLUME 8.4 fL (7.4-10.4); NEUTROPHILS 75.4 % (40-80); PLATELET COUNT 226 10x3/uL (130-400); RDW 17.3 % (11.5-14.5); WBC 7.3 10x3/uL (4.8-10.8)
[2018-10-20 06:06] LABS: HEMATOCRIT 29.7 % (42.0-54.0); MCV 77.3 fL (80.0-100.0); RBC 3.84 10x6/uL (4.20-6.10)
[2018-10-20 06:23] LABS: ALBUMIN 2.6 g/dL (3.4-5.0); ANION GAP 8.9 mmol/L (8-16); BILIRUBIN - TOTAL 0.54 mg/dL (0.2-1.3); CALCIUM 8.9 mg/dL (8.5-10.1); CARBON DIOXIDE 32.5 mmol/L (21.0-32.0); CREATININE - SERUM 1.3 mg/dL (0.6-1.3); POTASSIUM - SERUM 3.4 mmol/L (3.5-5.1); PROTEIN - SERUM 7.5 g/dL (6.4-8.2)
--- NOTE | 2018-10-20 08:00 | NUR ---
AM ROUNDS COMPLETED. INTRODUCED MYSELF TO PT PRIMARY RN FOR TODAYS SHIFT. PT IS A&O SITTING UP IN BED RESTING QUIETLY EATING BREAKFAST WITH FAMILY AT BEDSIDE. PT STATES HE HAD A GOOD NIGHT. SHIFT ASSESSMENT COMPLETED. SLIGHT DECREASE IN EDEMA IN BILAT THIGHS NOTED BUT STILL TIGHT, HOWEVER PT IS ON LASIX BUT STATES HE NORMALLY TAKES A HIGHER DOSE, WILL DISCUSS WITH PRIMARY. DRSGS TO L.LEFT CDI NO S/S OF DRAINAGE NOTED. PT DENIES ANY CURRENT PAIN OR NEEDS AT THIS TIME. CL IN REACH, BED IN LOWEST, SIDE RAILS X2. WILL CPOC.
[2018-10-20 08:23] VITALS: BP 136/72
--- NOTE | 2018-10-20 11:04 | NUR ---
DISCUSSED WITH PTS MEDICATIONS THAT WERE INCORRECT ON MEDICATION REC. AND THAT I UPDATED. HE GAVE NEW ORDERS TO CHANGE HOSPITAL DOSES. WILL UPDATE AND CPOC. NO CURRENT NEEDS.
[2018-10-20 12:00] VITALS: BP 112/55
--- NOTE | 2018-10-20 14:12 | NUR ---
PT CALLED TO USE BEDPAN. PT HAD SMALL SEMI FORMED ACOSTA BOWEL MOVEMENT. BUTTOCKS VERY RED BUT BLANCHABLE. APPLIED CALMOSEPTINE ORDERED. PULLED PT UP IN BED FOR COMFORT. PT VOICED THANKS AND DENIES ANY FURTHER NEEDS AT THIS TIME. CL IN REACH. WILL CTM.
[2018-10-20 15:36] VITALS: BP 119/70
--- NOTE | 2018-10-20 17:03 | NUR ---
PTS L.AC PIV INFILTRATED. D/C WITH CATHETER TIP FULLY INTACT. NEW 22 GUAGE INSERTED TO R.FA X2 STICKS, FLUSHES WITHOUT ANY RESISTANCE AND GOOD BLOOD RETURN NOTED. DRSG CDI AND SWAB CAPS IN USE. EMPTIED BEDSIDE URINAL OF 375ML CLEAR YELLOW URINE. PT VOICED THANKS AND IS RESTING QUIETLY WITH FAMILY AT BEDSIDE. CL IN REACH. WILL CTM.
--- NOTE | 2018-10-20 19:10 | NUR ---
AWAKE UP IN BED RECIEVING BREATHING TREATMENT...ALERT AND ANSWERS ALL APROPRIATELY. BED IS LOW AND LOCKED CALL LIGHT IS IN REACH OF PT SKIN IS WARM AND DRY AND DRSGS ARE INTACT TO LEFT LEG IV TO RT FA IS SL PT DENIES NEEDS AT THIS TIME
[2018-10-20 20:09] VITALS: BP 131/53
[2018-10-21 00:54] VITALS: BP 136/63
--- NOTE | 2018-10-21 03:16 | NUR ---
I have reviewed this patient and I concur with the Shift Assessment completed by the Licensed Practical Nurse today this shift.
[2018-10-21 05:37] VITALS: BP 159/79
[2018-10-21 06:17] LABS: BASOPHILS 0.3 % (0-2); EOSINOPHILS 4.5 % (0-7); HEMATOCRIT 31.9 % (42.0-54.0); HEMOGLOBIN 9.7 g/dL (13.5-17.5); IMMATURE GRANULOCYTES 0.1 % (0-5); LYMPHOCYTES 14.3 % (15-50); MCH 23.8 pg (26.0-34.0); MCHC 30.4 g/dL (31.0-37.0); MCV 78.4 fL (80.0-100.0); MEAN PLATELET VOLUME 8.5 fL (7.4-10.4); MONOCYTES 9.1 % (2-11); NEUTROPHILS 71.7 % (40-80); PLATELET COUNT 228 10x3/uL (130-400); RBC 4.07 10x6/uL (4.20-6.10); RDW 17.6 % (11.5-14.5); WBC 7.6 10x3/uL (4.8-10.8)
[2018-10-21 06:29] LABS: ANION GAP 9.6 mmol/L (8-16); CALCIUM 9.2 mg/dL (8.5-10.1); CREATININE - SERUM 1.5 mg/dL (0.6-1.3); POTASSIUM - SERUM 3.6 mmol/L (3.5-5.1)
--- NOTE | 2018-10-21 07:45 | NUR ---
A/A/OX4. DENIES ANY PAIN OR DISCOMFORT. DRESSING TO LEFT LEG C/D/I WELL DRESSING TO RIGHT SECOND TOE. NO REQUESTS VOICED AT PRESENT TIME. IS AT BEDSIDE. ASSESSMENT COMPLETED AND WILL CONTINUE POC
[2018-10-21 09:30] VITALS: BP 117/58
[2018-10-21 11:00] VITALS: BP 131/65
--- NOTE | 2018-10-21 13:20 | NUR ---
Nutrition follow-up: Diet: ADA consistent CHO PO intake ~83% of meals Labs reviewed 221# PO intake good at this time. RDN following.
--- NOTE | 2018-10-21 14:18 | NUR ---
I have reviewed this patient and I concur with the Shift Assessment completed by the Licensed Practical Nurse today this shift.
[2018-10-21 16:00] VITALS: BP 110/59
--- NOTE | 2018-10-21 19:33 | NUR ---
RECEIVED REPORT, WILL ASSUME CARE OF PT, DENIES ANY NEEDS AT THIS TIME, BED IS LOW, SRX2, CALL LIGHT IN REACH, WILL CONTINUE PLAN OF CARE
--- NOTE | 2018-10-21 20:31 | NUR ---
[id number] 6 UNITS OF HUMULIN R, PROVIDE A SNACK
--- NOTE | 2018-10-22 00:32 | NUR ---
SLEEPING, NO DISTRSS NOTICED AT THIS TIME, BED IS LOW, SRX2, CALL LIGHT IN REACH, WILL CONTINUE PLAN OF CARE
--- NOTE | 2018-10-22 03:38 | NUR ---
I have reviewed this patient and I concur with the Shift Assessment completed by the Licensed Practical Nurse today this shift.
--- NOTE | 2018-10-22 03:46 | NUR ---
ASKING FOR A ANN-MARIE OF COFFEE, GAVE REQUESTED, WILL CONTINUE PLAN OF CARE
[2018-10-22 04:25] VITALS: BP 127/79
[2018-10-22 05:46] LABS: BASOPHILS 0.1 % (0-2); EOSINOPHILS 0 % (0-7); HEMATOCRIT 31.5 % (42.0-54.0); HEMOGLOBIN 9.5 g/dL (13.5-17.5); IMMATURE GRANULOCYTES 0.1 % (0-5); LYMPHOCYTES 6.8 % (15-50); MCH 23.6 pg (26.0-34.0); MCHC 30.2 g/dL (31.0-37.0); MCV 78.4 fL (80.0-100.0); MEAN PLATELET VOLUME 8.7 fL (7.4-10.4); MONOCYTES 2.6 % (2-11); NEUTROPHILS 90.4 % (40-80); PLATELET COUNT 257 10x3/uL (130-400); RBC 4.02 10x6/uL (4.20-6.10); WBC 9.2 10x3/uL (4.8-10.8)
[2018-10-22 06:12] LABS: ANION GAP 14.2 mmol/L (8-16); CALCIUM 8.7 mg/dL (8.5-10.1); CARBON DIOXIDE 27.7 mmol/L (21.0-32.0); CREATININE - SERUM 1.8 mg/dL (0.6-1.3); POTASSIUM - SERUM 3.9 mmol/L (3.5-5.1)
--- NOTE | 2018-10-22 07:09 | NUR ---
REPORT RECEIVED. WILL CONTINUE WITH POC. PT CURRENTLY LYING SEMI FOWLERS. CALL LIGHT W/I REACH. PT IS AAO AND BEDFAST. AT BEDSIDE. RR EVEN AND UNLABORED ON RA. R.FOR PIV IS SALINE LOCKED. NO S/S OF DISTRESS NOTED. PT DENIES ANY NEEDS AT THIS TIME. WILL CTM.
[2018-10-22 08:44] VITALS: BP 144/67
[2018-10-22] MEDS ORDERED: NIFEREX-150 CAP1 CA3 PO (09:53)
[2018-10-22] MEDS ORDERED: IPRAT-ALBUT 0.5-3 ML UPD (09:53)
[2018-10-22] MEDS ORDERED: ULTRAM50 MG PO (09:54)
--- NOTE | 2018-10-22 11:16 | NUR ---
DRESSING CHANGE DONE. SIGNED AND DATED. PT DENIES ANY NEEDS AT THIS TIME. WILL CTM.
--- NOTE | 2018-10-22 12:55 | MORECARE ---
CASE MANAGEMENT DISCHARGE SUMMARY PATIENT: JEAN-PIERRE RODRIGUEZ UNIT: [id number] ADM DATE: 10/19/18 AGE: 83 : [birth year] SEX: M ROOM/BED: D.2140 AUTHOR: SEJAL,DOC PHYSICIAN: REFERRING PHYSICIAN: CARMINA FARAH MD DATE OF SERVICE: 10/22/18 Discharge Plan Patient Name: JEAN-PIERRE RODRIGUEZ Facility: [facility]:[place] : 1935 Planned Disposition: [facility] w Plan Readm Anticipated Discharge Date: Discharge Date: Expected LOS: Initial Reviewer: [email or web address] Initial Review Date: 10/22/2018 Generated: 10/22/18 1:55 pm Comments DCP- Discharge Planning Updated by [email or web address]: Otilia Hoyos on 10/22/18 11:[address] Patient Name: JEAN-PIERRE RODRIGUEZ Admission Status: ER Accout number: [id number] Admission Date: 10-19-2018 : 1935 Admission Diagnosis:WEAKNESS Attending: CARMINA FARAH Current LOS: 3 Anticipated DC Date: Planned Disposition: [facility] w Plan Readm Primary Insurance: MEDICARE A & B Discharge Planning Comments: CM met with patient about discharge planning. CM explained CM role and verbal consent was given to do dc assessment. CM educated on Home Health, DME and rehab services that are available. Patient states his discharge plan is to return to [facility] . States environment is safe dc . Denies any discharge planning needs at this time. [facility] will pick upon discharge. CM will continue to follow and assist as needed with discharge planning needs IMM and JOSE G delivered, signed and copy placed in chart Lean Manufacturing Leader: Otilia Hoyos DCPIA - Discharge Planning Initial Assessment Updated by [email or web address]: Otilia Hoyos on 10/22/18 12:55 pm * Is the patient Alert and Oriented? Yes * How many steps to enter\exit or inside your home? na * PCP detention DR * Pharmacy [place] [facility] * Preadmission Environment [facility] * Facility Name [facility] * ADLs Partial Dependent * Partial ADLs (Assistance needed) Bathing Dressing * Equipment Wheelchair * Verbal permission to speak to the caregivers and representatives has been obtained from the patient. N/A * Community resources currently utilized Other * Additional services required to return to the preadmission environment? No * Can the patient safely return to the preadmission environment? Yes * Has this patient been hospitalized within the prior 30 days at any hospital? No Patient Name: JEAN-PIERRE RODRIGUEZ Page [phone] at 1255 All edits/amendments must be made on the electronic document DICTATION DATE: 10/22/18 125 BAR PILOT: SIMEON 10/22/18 1255 RPT#: [id number] DC DATE: STATUS: ADM IN [facility] [address] [place] [address] END OF REPORT
--- NOTE | 2018-10-22 14:51 | NUR ---
PT DISCHARGED BACK TO [facility] [place] VIA [facility]. PIV REMOVED WITH CATHETER TIP FULLY INTACT. PT SIGNED DISCHARGE INSTRUCTION AND REMOVED ALL VALUABLES FROM THE ROOM.
--- NOTE | 2018-10-24 09:29 | MORECARE ---
CASE MANAGEMENT DISCHARGE SUMMARY PATIENT: JEAN-PIERRE RODRIGUEZ UNIT: [id number] ADM DATE: 10/19/18 AGE: 83 : 33 SEX: M ROOM/BED: D.2140 AUTHOR: MELINDA POST PHYSICIAN: REFERRING PHYSICIAN: CARMINA FARAH MD DATE OF SERVICE: 10/24/18 Discharge Plan Patient Name: JEAN-PIERRE RODRIGUEZ Facility: [facility]:[place] : 1935 Planned Disposition: [facility] Facility w Plan Readm Anticipated Discharge Date: 10/22/18 Discharge Date: 10/22/2018 Expected LOS: 3 Initial Reviewer: JOSE Initial Review Date: 10/22/2018 Generated: 10/24/18 10:29 am Comments DCP- Discharge Planning Updated by [email or web address]: Otilia Hoyos on 10/22/18 11:[address] Patient Name: JEAN-PIERRE RODRIGUEZ Admission Status: ER Accout number: [id number] Admission Date: 10-19-2018 : 1935 Admission Diagnosis:WEAKNESS Attending: CARMINA FARAH Current LOS: 3 Anticipated DC Date: Planned Disposition: [facility] w Plan Readm Primary Insurance: MEDICARE A & B Discharge Planning Comments: CM met with patient about discharge planning. CM explained CM role and verbal consent was given to do dc assessment. CM educated on Home Health, DME and rehab services that are available. Patient states his discharge plan is to return to [place] . States environment is safe dc . Denies any discharge planning needs at this time. [facility] will pick upon discharge. CM will continue to follow and assist as needed with discharge planning needs IMM and JOSE G delivered, signed and copy placed in chart Cardiac Nurse: Otilia Hoyos DCPIA - Discharge Planning Initial Assessment Updated by [email or web address]: Otilia Hoyos on 10/22/18 12:55 pm * Is the patient Alert and Oriented? Yes * How many steps to enter\exit or inside your home? na * PCP intermediate DR * Pharmacy [place] pharmacy * Preadmission Environment [facility] * Facility Name [place] * ADLs Partial Dependent * Partial ADLs (Assistance needed) Bathing Dressing * Equipment Wheelchair * Verbal permission to speak to the caregivers and representatives has been obtained from the patient. N/A * Community resources currently utilized Other * Additional services required to return to the preadmission environment? No * Can the patient safely return to the preadmission environment? Yes * Has this patient been hospitalized within the prior 30 days at any hospital? No Coverage Notice Reviewer: JOSE Hoyos Notice Issued Date-Time: 10/22/2018 10:30 Notice Type: IM Discharge Notice Notice Delivered To: Patient Relationship to Patient: Self Product Consultant Name: Delivery Method: HAND - Hand Delivered Melanie Days: Prior Verbal Notification: Recipient Understood Notice: Yes Recipient Signature: Yes Med Rec Note Co-signed by Attending: Coverage Notice Comment: Reviewer: JOSE Hoyos Notice Issued Date-Time: 10/22/2018 10:30 Notice Type: Patient Choice Letter Notice Delivered To: Patient Relationship to Patient: Self Product Consultant Name: Delivery Method: HAND - Hand Delivered Melanie Days: Prior Verbal Notification: Recipient Understood Notice: Yes Recipient Signature: Yes Med Rec Note Co-signed by Attending: Coverage Notice Comment: Last DP export: 10/22/18 11:55 am Patient Name: JEAN-PIERRE RODRIGUEZ Page [phone] at 0929 All edits/amendments must be made on the electronic document DICTATION DATE: 10/24/18928 COLLAR RUNNER: SIMEON 10/24/18928 RPT#: [id number] DC DATE:10/22/18 STATUS: DIS IN [facility] [address] [place] [address] END OF REPORT
--- NOTE | 2018-10-28 16:41 | CN ---
PATIENT NAME:JEAN-PIERRE RODRIGUEZ MEDICAL RECORD: [id number] : 33 LOCATION:. D.2140 ADMIT DATE: 10/19/18 ACCOUNT: [id number] CONSULTING PHYSICIAN: DEMI CALLES MD REFERRING PHYSICIAN: CARMINA FARAH MD DATE OF CONSULTATION: 10/21/2018 CARDIOLOGY CONSULT ADMITTING DIAGNOSES: 1. Coronary artery disease. 2. Status post coronary artery bypass graft surgery. 3. Status post percutaneous transluminal coronary angioplasty stent. 4. Cardiomyopathy. 5. Hypertension. 6. Diabetes. 7. Abnormal ECG. 8. Anemia. 9. Valvular heart disease, mitral regurgitation. 10. Congestive heart failure, chronic systolic dysfunction. HISTORY OF PRESENT ILLNESS: Mr. Rodriguez was admitted with shortness of breath. He has chronic systolic dysfunction, ejection fraction in the 30% to 35% range. He has mild mitral regurgitation as well. He has a history of coronary disease, but he has not had any recent anginal symptomatology. His EKG is abnormal, but stable with no acute ST-T abnormalities. He has had no significant dysrhythmias since being in here. CURRENT MEDICATIONS: Coreg, losartan. Heart rate is in the 60s and 70s. Systolic blood pressure is in the 30s. He was found to be markedly anemic with correction of the anemia. The shortness of breath has improved. He as well is a known oncologic patient with a history of metastatic cancer. He has been followed by oncology for this. PHYSICAL EXAMINATION: GENERAL APPEARANCE: Well-nourished, well-developed, appears stated age. Level of distress, comfortable. PSYCHIATRIC: Mental status, alert, normal affect. Orientation, oriented to time, place and person. EYES: Lids and conjunctiva, noninjected. No discharge, no pallor. ENT: Lips, teeth, gums, normal dentition. Oropharynx, no cyanosis, no pallor. NECK: Carotid arteries, bilateral normal upstroke, no bruits, no thrills. JUGULAR VEINS: No jugular venous pressure or distention. CERVICAL LYMPH NODES: Nontender, nonenlarged. THYROID: Not enlarged. Nontender. No nodules. LUNGS: Respiratory effort, unlabored. CHEST: Normal curvature. No thoracic deformity. No chest wall tenderness. Percussion, resonant. Auscultation, clear. No wheezes, no rales, no rhonchi. CARDIOVASCULAR: Precordial exam, nondisplaced. No heaves or pericardial thrills. Rate and rhythm, regular. Heart sounds, normal S1, normal S2. No S3, no gallop, no rub. Systolic murmur, not heard. Diastolic murmur, not heard. EXTREMITIES: No cyanosis, no edema. Peripheral pulses, full and equal in all extremities, except as noted. No bruits appreciated. ABDOMEN: Soft, nondistended. Normal aorta. No bruit. Nontender. No masses. CONSULT REPORT [id number] JEAN-PIERRE RODRIGUEZ Liver, nontender, no hepatomegaly. Spleen, nontender, no splenomegaly. MUSCULOSKELETAL: No joint tenderness. No joint swelling. No erythema. NEUROLOGICAL: Normal gait, normal strength, normal tone. SKIN: Warm and dry. OVERALL IMPRESSION: Cardiomyopathy obviously contributing to his shortness of breath along with the anemia, but his cardiomyopathy appears stable. His ejection fraction is stable. He does not have pulmonary edema and he is not having ischemic heart disease at this time. It is stable as well from the standpoint of valvular heart disease. At this time, no other cardiac workup or treatment is necessary. TRANSINT:[id number] Voice Confirmation ID: [id number] DOCUMENT ID: [id number] DEMI CALLES MD at 1641 CC: [id number] DICTATION DATE: 10/21/18 1358 FELLER MACHINE OPERATOR: 10/21/18 1415 DIS IN 10/22/18 [address] [id number] [id number]
--- NOTE | 2018-10-28 16:41 | EC ---
PATIENT:JEAN-PIERRE RODRIGUEZ DATE OF SERVICE: 10/19/18 SEX: M MEDICAL RECORD: [id number] DATE OF : [birth year] LOCATION:D.M2 D.214 AGE OF PATIENT: 83 ADMISSION DATE: 10/19/18 REFERRING PHYSICIAN: INTERPRETING PHYSICIAN: DEMI WOODRUFF MD ECHOCARDIOGRAM REPORT ECHO CHARGES 4 ECHO COMPLETE Date: 10/19/18 CLINICAL DIAGNOSIS: CHF ECHOCARDIOGRAPHIC MEASUREMENTS (adult normal given) AC root (d.<3.7cm) 4.2 cm LV Septum d (<1.2 cm> 1.4 cm Valve Excursion 1.6 cm LV Septum (systole) 1.6 cm Left Atria (s.<4.0cm> 4.2 cm LVPW d(<1.2cm) 1.5 cm RV (d.<2.3cm) 4.3 cm LVPW (sytole) 1.7 cm LV diastole(<5.6CM) 6.0 cm MV E-F(>70mm/sec) cm LV systole 5.5 cm LVOT Diameter 2.0 cm MV exc.(>10mm) 2.0 cm Est.ejection fraction (50-75%) % DOPPLER: LVIT cm/sec A 95.0 cm/sec E 67.0 cm/sec LA cm/sec RVSP 17 mmHg LVOT 79 cm/sec AOP1/2T m/s Asc. Ao 136 cm/sec RVOT 76 cm/sec RA cm/sec PA 96 cm/sec AV Gradient Peak 7.42 mmHg AV Mean 4.11 mmHg AV Area 2.2 cm MV Gradient Peak 4.37 mmHg MV Mean 1.91 mmHg MV Area cm COMMENTS: Government Documents Librarian: Dony VALDES Snuff Container Inspector: 1 Dr. Woodruff TAPE# PACS Pericardial Effusion N DATE OF SERVICE: FINDINGS: 1. Left ventricular chamber size is dilated. Left ventricular systolic function is moderately reduced, overall ejection fraction 30% to 35%. 2. Left atrium is enlarged at 4.2 cm. Right atrium and right ventricle chamber sizes are as well mildly dilated. 3. Valvular structures have normal structure and motion. 4. Doppler interrogation reveals mild mitral regurgitation, trace tricuspid regurgitation, no other valvular insufficiency or stenosis. Pulmonary systolic ECHOCARDIOGRAM REPORT [id number] JEAN-PIERRE RODRIGUEZ E pressure is estimated at 70 mmHg. 5. No evidence of pericardial effusion or left ventricular thrombus. TRANSINT:[id number] Voice Confirmation ID: [id number] DOCUMENT ID: [id number] DEMI WOODRUFF MD at 1641 CC: SHANAE WHEELER MD [id number] DICTATION DATE: 10/19/18 1634 HOT BOX CHECKER: 10/19/187 DIS IN 10/22/18 [address] [id number] [place] [id number]
== END 2018-10-22 14:54 | DRG 291 ==
LOC: D.ER 01:14 → D.M2 03:30 → D.EDHOLD 03:30 → D.M2 07:23
PROVIDERS: Emergency Medicine; Family Medicine; ADMIT Family Medicine; ATTEND Family Medicine
DX: I13.0 Hypertensive heart and chronic kidney disease with heart failure and stage 1 through stage 4 chronic kidney disease, or unspecified chronic kidney disease (principal); I50.23 Acute on chronic systolic (congestive) heart failure; N17.9 Acute kidney failure, unspecified; I42.9 Cardiomyopathy, unspecified; I25.10 Atherosclerotic heart disease of native coronary artery without angina pectoris; R94.31 Abnormal electrocardiogram [ECG] [EKG]; I34.0 Nonrheumatic mitral (valve) insufficiency; E11.9 Type 2 diabetes mellitus without complications; N18.9 Chronic kidney disease, unspecified; E11.22 Type 2 diabetes mellitus with diabetic chronic kidney disease; D63.1 Anemia in chronic kidney disease